=== PATIENT | male | born 1950 | race Caucasian/White ===

== ENCOUNTER → 2020-04-23 14:09 | Outpatient (BNVA) | payer MEDICARE, SELFPAY | PROVIDERS: Family Provider Family Medicine; Visit Provider Specialist | DX: M17.12 Unilateral primary osteoarthritis, left knee (principal); M25.562 Pain in left knee; M25.561 Pain in right knee | CPT/HCPCS: 73560; 73565 ==

== ENCOUNTER 2020-04-29 13:23 | Outpatient (CLI) | payer MEDICARE, SELFPAY ==
--- NOTE | 2020-04-29 13:45 | MR_ITS ---
WS: [id number] MRI LEFT KNEE HISTORY: M25.569 - Pain in unspecified knee COMPARISON: 04/23/2020 knee radiograph. Anterior cruciate ligament: Abnormal signal in the mid to distal ACL. There are a few fibers of the a nterior ACL that are still intact. There is a high-grade tear centrally. There is impingement of the ACL between the femoral condyles and the tibial plateau. Posterior cruciate ligament: Intact. Medial collateral ligament: Increased fluid signal and edema on both sides of the MCL but no tear. Posterior lateral corner structures: Intact. Medial menisci: Complex tear in the posterior horn. There is blunting and loss of the normal free edg e. There is linear horizontal signal abnormality through the entire horn. Anterior horn is normal. Lateral meniscus: Intact. Normal signal, size and shape. Extensor mechanism: Distal quadriceps tendon is normal. Patellar tendon is normal. There is extension of the infrapatellar fat pad inferiorly between the patellar tendon and the anterior tibia. No foreman lar tendon tear. Fluid and soft tissue: Very large suprapatellar joint effusion. There is extensive soft tissue edema surrounding the knee. Large lobulated Hanna's cyst extends over length of at least 7 cm. There is flu id around the distal Hanna's cyst suggesting some extravasation of the fluid content. Osseous and articular structures: Patellofemoral compartment: Mild narrowing of the lateral facet joint. Cartilage is intact. No fractu re or marrow edema. Medial compartment: Marked narrowing medial compartment. There is complete loss of cartilage and fill ing along the joint line. Partial extrusion of the meniscus. Marrow edema on both sides of the joint line. Small osteophytes from the margin. Lateral compartment: Mild narrowing of the lateral compartment. There is no marrow edema. There is ve ry mild fissuring of the cartilage. MR/MR knee LT wo con* [id number] IMPRESSION: 1. Severe internal derangement medial compartment. Complete loss of cartilage with extrusion of the meniscus, complex tear posterior horn and marrow edema. 2. Although not complete there is a high-grade tear in the mid ACL. 3. Large Hanna's cyst and large joint effusion. 4. Extensive soft tissue edema around the knee.
== END 2020-04-29 13:24 | disposition home or self-care (01) ==
PROVIDERS: Family Provider Family Medicine; Visit Provider Specialist
DX: M23.92 Unspecified internal derangement of left knee (principal); S83.512A Sprain of anterior cruciate ligament of left knee, initial encounter; M71.22 Synovial cyst of popliteal space [Baker], left knee; M25.462 Effusion, left knee; R60.0 Localized edema; X58.XXXA Exposure to other specified factors, initial encounter
CPT/HCPCS: 73721

== ENCOUNTER 2020-06-30 15:41 | Outpatient (CLI) | payer MEDICARE, SELFPAY ==
--- NOTE | 2020-06-30 15:50 | MR_ITS ---
WS: [id number] MRI THORACIC SPINE noncontrast. HISTORY: LEG WEAKNESS, BILATERAL COMPARISON: None available. TECHNIQUE: Multiplanar sequences are performed in sagittal and axial planes. This study is significantly limited by hardware. The exact vertebral body levels cannot be accurately identified. Hardware in the upper thoracic spine with significant distortion. Additional hardware at the thoracolumbar junction causing significant distortion. In the mid thoracic spine there are small disc protrusions and osteophytes but no compression upon the cord. There are several central and par acentral disc protrusions in the mid thoracic spine but again I'm not sure I can determine accurately at which levels these protrusions or atrophy. There is no cord contact. MR/MR thoracic spin wo con* [id number] IMPRESSION: 1. Significantly limited evaluation of the thoracic spine due to hardware in t he cervical thoracic spine and thoracolumbar junction. The exact mid thoracic v ertebral body levels cannot be accurately determined. 2. There are small central and paracentral disc protrusions in the mid thoraci c spine but no cord contact. No significant central stenosis in the visualized mid thoracic vertebral bodies.
--- NOTE | 2020-06-30 16:00 | MR_ITS ---
WS: [id number] MRI LUMBAR SPINE NONCONTRAST HISTORY: LEG WEAKNESS, BILATERAL COMPARISON: None available. TECHNIQUE: Sagittal and axial multisequence imaging is submitted. Patient has extensive fusion hardware throughout the lumbar spine extending into the thoracic spine. This study is essentially nondiagnostic due to the artifact and distortion from the hardware. 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 Extensive laminectomy defects throughout the lumbar spine. No significant central sten osis is identified throughout the lumbar spine but the foramina cannot be evaluated and small disc pr otrusions or herniations would be obscured also. MR/MR lumbar spine wo con* [id number] IMPRESSION: 1. Essentially nondiagnostic MRI lumbar spine due to the extensive hardware ca using artifact and distortion of the sequences. 2. There is no significant central stenosis identified from L1 to L5. Small di sc protrusions would not be visualized. Foramina cannot be evaluated. 3. Arachnoiditis.
== END 2020-06-30 15:42 | disposition home or self-care (01) ==
LOC: RADSHAW 15:41
PROVIDERS: PCP Family Medicine; Visit Provider Nurse Practitioner Acute Care
DX: R29.898 Other symptoms and signs involving the musculoskeletal system (principal); G03.9 Meningitis, unspecified
CPT/HCPCS: 72146; 72148

== ENCOUNTER 2021-08-05 09:34 | Outpatient (RCR) | payer MEDICARE, SELFPAY | END 2021-08-08 23:59 | disposition home or self-care (01) | LOC: SPT 09:34 | PROVIDERS: PCP Family Medicine; Referring Provider Orthopaedic Surgery; Visit Provider Orthopaedic Surgery | DX: M17.12 Unilateral primary osteoarthritis, left knee (principal) | CPT/HCPCS: 97161 ==

== ENCOUNTER 2021-08-09 06:00 | Outpatient (RCR) | payer MEDICARE, SELFPAY | END 2021-09-08 23:59 | disposition home or self-care (01) | LOC: SPT 06:00 | PROVIDERS: PCP Family Medicine; Referring Provider Orthopaedic Surgery; Visit Provider Orthopaedic Surgery | DX: M17.12 Unilateral primary osteoarthritis, left knee (principal) | CPT/HCPCS: 97032; 97110 ==

== ENCOUNTER 2021-09-09 06:00 | Outpatient (RCR) | payer MEDICARE, SELFPAY | END 2021-09-15 23:59 | disposition home or self-care (01) | LOC: SPT 06:00 | PROVIDERS: PCP Family Medicine; Referring Provider Orthopaedic Surgery; Visit Provider Orthopaedic Surgery | DX: Z47.1 Aftercare following joint replacement surgery (principal); Z96.652 Presence of left artificial knee joint; R26.89 Other abnormalities of gait and mobility; M25.562 Pain in left knee | CPT/HCPCS: 97110 ==

== ENCOUNTER 2021-10-29 10:29 | Outpatient (RCR) | payer MEDICARE, SELFPAY | END 2021-11-08 23:59 | disposition home or self-care (01) | LOC: SPT 10:29 | PROVIDERS: PCP Family Medicine; Referring Provider Orthopaedic Surgery; Visit Provider Orthopaedic Surgery | DX: Z96.651 Presence of right artificial knee joint (principal) | CPT/HCPCS: 97161 ==

== ENCOUNTER 2021-11-09 06:00 | Outpatient (RCR) | payer MEDICARE, SELFPAY | END 2021-12-09 23:59 | disposition home or self-care (01) | LOC: SPT 06:00 | PROVIDERS: PCP Family Medicine; Visit Provider Orthopaedic Surgery | DX: Z96.641 Presence of right artificial hip joint (principal) | CPT/HCPCS: 97110 ==

== ENCOUNTER 2021-12-10 06:00 | Outpatient (RCR) | payer MEDICARE, SELFPAY | END 2022-01-08 23:59 | disposition home or self-care (01) | LOC: SPT 06:00 | PROVIDERS: PCP Family Medicine; Visit Provider Orthopaedic Surgery | DX: Z96.651 Presence of right artificial knee joint (principal); M25.561 Pain in right knee; M25.661 Stiffness of right knee, not elsewhere classified | CPT/HCPCS: 97110 ==

== ENCOUNTER 2021-12-25 22:52 | Emergency (ER) | payer MEDICARE, SELFPAY ==
[2021-12-25 22:55] VITALS: BP 118/63; PULSE 88; RESP 22; O2SAT 85; BMI 25.8
--- NOTE | 2021-12-25 22:55 | ED_ITS ---
HPI - Altered Mental Status General: Chief Complaint: Altered Mental Status Stated Complaint: AMS Time Seen by Provider: 12/25/21 22:55 Limitations: other (Dysarthric speech) History of Present Illness: Mr Packer is a 71-year-old gentleman with complex past medical history who presents to the emergency department due to altered mental status. He underwent right total knee replacement approximately 3 months ago and had been slowly recovering. He was doing his exercises at home when he fell and hit his head on Tuesday (2 days ago). He did not have loss of consciousness and seemed to be able to get up. Subsequently he developed increased headache and generalized weakness. He was seen at outside hospital ER and apparently had a negative evaluation there but symptoms continue to worsen. He now has generalized weakness and dysarthric speech. Intensity symptoms moderate to severe. He has had a similar presentation with somewhat unclear et iology identified previously. History otherwise limited by dysarthric speech and provided by at bedside. Onset (ago): day(s) Timing confirmed by: spouse Severity: severe Consistency of symptoms: Getting Worse Context: trauma and other Associated symptoms: Reports no associated symptoms Review of Systems General: Reports: ROS unobtainable due to medical condition and ROS unobtainable due to mental status [facility] ED PFSH: Medical History (Updated 01/03/22 @ 00:01 by ) Chronic pain History of DVT (deep vein thrombosis) Hypertension Osteoarthritis of back Surgical History (Updated 12/26/21 @ 03:53 by Murray Torres MD) History of bilateral knee replacement Social History Smoking and tobacco status: never smoked Alcohol intake: current Alcohol intake frequency: 0-2 Drinks per Day Physical Exam Const: COMMON NORMALS: alert GENERAL APPEARANCE: cooperative and well developed HENMT: COMMON NORMALS: normocephalic and atraumatic HEAD & SCALP: normocephalic and atraumatic Eye: COMMON NORMALS: conjunctivae normal CONJUNCTIVA: Yes conjunctivae norm al SCLERA: sclerae normal Neck/C-Spine: COMMON NORMALS: supple GENERAL: Yes trachea midline Resp: COMMON NORMALS: normal respiratory effort and clear to auscultation bilaterally AUSCULTATION: clear to auscultation bilaterally OTHER: New oxygen requirement with supplemental oxygen in place Cardio: COMMON NORMALS: regular rate and regular rhythm RATE: regular rate RHYTHM: regular rhythm GI: COMMON NORMALS: Soft to palpation PALPATION: Yes Soft to palpation, Yes Tenderness to palpation present (GI), No Guarding due to palpation present (GI) and No Rigid due to palpation Extremity: GENERAL: Yes normal exam except as noted and No edema Neuro: COMMON NORMALS: moves all extremities SENSORIUM/ORIENTATION: Yes alert and Yes Orientation impaired OTHER: Dysarthric speech. Patient requires multiple repeated commands and mimicking for following commands though no gross focal neurologic deficits are otherwise appreciated. Course ED course: - Patient was seen and evaluated by me at bedside - Patient placed on cardiac monitors, IV access obtained - Initial evaluation notable for exam as above. Patient appears encephalopathic though does not appear to be primary neuro in etiology. - Labs and xrays personally interpreted by me. EKG shows sinus rhythm with right bundle branch block, no STEMI. - Labs notable for no leukocytosis, normocytic anemia. Metabolic panel without acute pathology to explain symptoms. CRP is elevated. Delta troponin negative. No UTI. No COVID. - Imaging notable for chest x-ray with no lobar consolidation or pneumothorax. CT head without acute traumatic injury identified. CT chest abdomen pelvis without evidence of acute pathology to explain mental status change/symptoms. - Upon serial reexamination after treatment the patient was perhaps mildly improved with regards to dysarthric speech - Based on patient history, evaluation, and testing as interpreted the most likely cause of the patient's condition is encephalopathy of unclear etiology - The results of ED evaluation were discussed with the patient including plan for admission due to requirement for level of care not available if discharged to prevent significant worsening/deterioration. - Admitting service was contacted and Dr Torres with the hospitalist service came to evaluate the patient. - Admitting service request CT of patient's replace need to rule out fluid collection/infectious etiology as a source of patient's symptoms prior to admission at our facility. - CT with inflammatory changes concerning for possible abscess formation. Given inflammatory marker elevation without other significant source of infection identified including negative CT scan of the head chest abdomen pelvis patient requires transfer. Patient was accepted by Dr. Odom to [facility]. Note: Click bubbles or prepopulated brito in note writing are used for assistance with data collection and billing and are inherently more limited than narrative and other text portions of this note. Please use narrative for additional clinical history and defer to narrative/free test for any case of contradictory information. If information appears in only free text or click bubble it should be considered present or absent as reported. Please contact note technical proposal writer for clarifications of clinical information or contradictory information. MDM is a brief summary, contradictory or erroneous seeming information should be clarified and full note should be reviewed. Vital Signs: Vital signs: Vital Signs Temperature 100.5 F H 12/26/21 01:34 Pulse Rate 72 12/26/21 09:00 Respiratory Rate 15 12/26/21 09:33 Blood Pressure 96/52 12/26/21 09:00 Pulse Oximetry 93 12/26/21 09:33 Oxygen Delivery Me thod 12/26/21 08:30 MDM - Altered Mental Status Medical Decision Making 71-year-old gentleman presenting with unspecified altered mental status. No clear etiology identified on ED evaluation. Evaluated by admitting service and additional work-up ordered. Upon CT knee evaluation concern for source of infection. Patient has developed fever and inflammatory markers are elevated. Procedure was done through the [facility] system with Dr. Odom. Luckily Dr. Odom was on-call and accepted the patient as a transfer. Medical Records I reviewed the patient's medical records. Lab Data I reviewed the patient's lab results. : 12/25/21 23:04 12/25/21 23:04 Radiology Impressions Chest X-Ray 12/25/21 23:07 IMPRESSION: No acute infiltrate. Chest/Abdomen/Pelvis CT 12/25/21 23:28 IMPRESSION: 1. 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 2. Strandy opacities are seen adjacent to the major fissures bilaterally and within the lower hemithoraces likely representing atelectasis versus pleural or parenchymal scarring. IMPRESSION: 1. There are no acute abdominal findings. 2. Benign right renal cyst measuring 2 cm in diameter. No further workup needed. 3. Benign small pelvocaliceal cysts within the left kidney. No further workup needed. 4. Mild diverticulosis of the descending and sigmoid colon 5. Patulous gallbladder without evidence of gallstones. 6. Extensive postoperative changes seen within the thoracolumbar spine. COMMENTS: Consistent with the [employer]'s Incidental Findings Committee white paper (J Am Rea Radiol 2018): Any incidental renal lesion less than 1 cm or classified as too small to characterize, or any incidental cystic renal lesion characterized as simple-appearing, is likely benign. No follow-up imaging is recommended for these lesions per consensus recommendations based on imaging criteria. Head CT 12/25/21 23:28 IMPRESSION: There are no acute intracranial findings. Stable head CT compared with 01/06/2018. Knee CT 12/26/21 03:35 IMPRESSION: 1. The right knee prosthesis creates beam hardening artifact decreasing resolution. 2. There is abnormal low-attenuation with peripheral enhancement seen in the suprapatellar bursa worrisome for inflammatory changes and possible suprapatellar abscess formation. Laboratory Results WBC 9.3 10^3/uL (4.0-10.0) 12/25/21 23:04 RBC 3.92 10^6/uL (4.1-5.3) L 12/25/21 23:04 Hgb 11.1 g/dL (11.7-16.6) L 12/25/21 23:04 Hct 35.5 % (42.0-52.0) L 12/25/21 23:04 MCV 90.6 fl (80-94) 12/25/21 23:04 MCH 28.3 pg (28.0-34.0) 12/25/21 23:04 MCHC 31.3 g/dL (30.0-36.0) 12/25/21 23:04 RDW 16.0 % (12.1-15.1) H 12/25/21 23:04 Plt Count 323 10^3/cmm (130-400) 12/25/21 23:04 MPV 9.5 fL (7.4-10.4) 12/25/21 23:04 Neut % (Auto) 76.8 % 12/25/21 23:04 Lymph % (Auto) 10.0 % 12/25/21 23:04 [place] % (Auto) 9.9 % 12/25/21 23:04 Eos % (Auto) 2.5 % 12/25/21 23:04 Baso % (Auto) 0.5 % 12/25/21 23:04 Neut # (Auto) 7.14 10^3/uL (1.8-7.7) 12/25/21 23:04 Lymph # (Auto) 0.9 10^3/uL (0.8-4.8) 12/25/21 23:04 [place] # (Auto) 0.9 10^3/uL (0.2-0.9) 12/25/21 23:04 Eos # (Auto) 0.2 10^3/uL (0.0-0.8) 12/25/21 23:04 Baso # (Auto) 0.1 10^3/uL (0.0-0.1) 12/25/21 23:04 Nucleated RBC % (auto) 0 % 12/25/21 23:04 Nucleated RBCs # 0.0 /100WBC 12/25/21 23:04 ESR 68 mm/hr (0-10) H 12/26/21 03:39 Sodium 137 mmol/L (136-145) 12/25/21 23:04 Potassium 4.4 mmol/L (3.5-5.1) 12/25/21 23:04 Chloride 98 mmol/L (98-107) 12/25/21 23:04 Carbon Dioxide 25 mmol/L (22-29) 12/25/21 23:04 Anion Gap 18.4 (5-19) 12/25/21 23:04 BUN 19 mg/dL (8-23) 12/25/21 23:04 Creatinine 1.2 mg/dL (0.7-1.2) 12/25/21 23:04 GFR Calculation 60.0 mL/min (90-130) L 12/25/21 23:04 Glucose 101 mg/dL (65-115) 12/25/21 23:04 POC Glucose 113 mg/dL (70-110) H 12/25/21 23:49 Calculated Osmolality 286 mOsm/kg (285-295) 12/25/21 23:04 Lactate 0.7 mmol/L (0.5-2.2) 12/25/21 23:26 Calcium 8.9 mg/dL (8.5-10.5) 12/25/21 23:04 Magnesium 2.2 mg/dL (1.7-2.3) 12/25/21 23:04 Total Bilirubin 0.7 mg/dL (0.15-1.2) 12/25/21 23:04 AST 9 U/L (0-40) 12/25/21 23:04 ALT 6 U/L (0-41) 12/25/21 23:04 Alkaline Phosphatase 89 U/L (40-130) 12/25/21 23:04 Troponin T Baseline 57 ng/L (0-15) H 12/25/21 23:04 Troponin T 120 Minute 48.51 ng/L (0-15) H 12/26/21 01:31 Delta Troponin T -8.49 ABS# (0-10) L 12/26/21 01:31 Troponin T Hi Sens 6Hr 53.89 ng/L (0-15) H 12/26/21 06:05 Troponin T Hi Sens 6Hr Delta -3.11 ng/L (0-12) L 12/26/21 06:05 C-Reactive Protein 220.1 mg/L (0.0-4.9) H 12/25/21 23:04 NT-Pro-B Natriuret Pep 171 pg/mL (0-125) H 12/25/21 23:04 Total Protein 5.7 g/dL (6.6-8.7) L 12/25/21 23:04 Albumin 2.9 g/dL (3.5-5.2) L 12/25/21 23:04 Globulin 2.8 g/dL (1.3-4.6) 12/25/21 23:04 Procalcitonin 0.40 ng/mL (0-0.5) 12/25/21 23:04 TSH 1.89 uIU/mL (0.27-4.20) 12/25/21 23:04 Urine Color Yellow (Yellow) 12/25/21 23:52 Urine Appearance Clear (CLEAR) 12/25/21 23:52 Urine pH 6 (5-7) 12/25/21 23:52 Ur Specific [place] 1.015 (1.005-1.030) 12/25/21 23:52 Urine Protein Neg (Negative) 12/25/21 23:52 Urine Glucose (UA) Norm (Normal) 12/25/21 23:52 Urine Ketones Negative (Negative) 12/25/21 23:52 Urine Blood Neg (Negative) 12/25/21 23:52 Urine Nitrate Negative (Negative) 12/25/21 23:52 Urine Bilirubin Neg (Negative) 12/25/21 23:52 Urine Urobilinogen Neg mg/dL (Negative) 12/25/21 23:52 Ur Leukocyte Esterase Negative (Negative) 12/25/21 23:52 Coronavirus 229E (PCR) Not detected (NOT DETECT) 12/25/21 23:51 SARS-CoV-2 (PCR) Not detected (NOT DETECT) 12/25/21 23:51 Discharge Plan Discharge Patient Disposition: Xfer Short-Term Hosp Clinical Impression: Altered mental status Condition: Stable Referrals: Geraldine Anderson DO [Primary Care Provider] - Coding Level of Care Code ED Transmission Technician for Chg Fwd Exam Comprehensive
--- NOTE | 2021-12-25 23:07 | XRR_ITS ---
PROCEDURE INFORMATION: Exam: XR Chest Exam date and time: 12/25/2021 11:10 PM Age: 71 years old Clinical indication: Prior surgery; Surgery type: Cervical fusion. Thoracic fusion; Patient HX: AMS with fever TECHNIQUE: Imaging protocol: Radiologic exam of the chest. Views: 1 view. COMPARISON: CR XR chest 1V [id number] 01/06/2018 5:02 PM FINDINGS: Lungs: Visualized portions of the lungs are clear. Pleural spaces: Unremarkable. No pleural effusion. No pneumothorax. Heart/Mediastinum: Heart is within normal limits of size. Bones/joints: Findings of posterior spinal fusion are seen in the cervicothoracic region and lower thoracic spine not changed from 01/06/2018. XR/XR chest 1V portable [id number] IMPRESSION: No acute infiltrate.
--- NOTE | 2021-12-25 23:07 | ECG_ITS ---
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 Measurements Intervals [place] Rate: 91 P: 43 ME: 132 QRS: 152 QRSD: 170 T: 30 QT: 396 QTc: 489 Interpretive Statements SINUS RHYTHM Right axis deviation RIGHT BUNDLE BRANCH BLOCK [120+ ms QRS DURATION, UPRIGHT V1, 40+ ms S IN I/aVL/V4/V5/V6] LEFT POSTERIOR FASCICULAR BLOCK [QRS AXIS > 109, INFERIOR Q] Compared to ECG 01/06/2018 20:26:01 Left posterior fascicular block now present Electronically Signed On 12-26-2021 9:14:59 CDT by Mychal Burton M.D. [id number] f
[2021-12-25 23:15] VITALS: TEMP 37.2
[2021-12-25 23:22] LABS: Basophils # 0.1 10^3/uL (0.0-0.1); Basophils % 0.5 %; Eosinophils # 0.2 10^3/uL (0.0-0.8); Eosinophils % 2.5 %; Hematocrit 35.5 % (42.0-52.0); Hemoglobin 11.1 g/dL (11.7-16.6); Lymphocytes # 0.9 10^3/uL (0.8-4.8); Mean Corpuscular HGB Conc 31.3 g/dL (30.0-36.0); Mean Corpuscular Hemoglobin 28.3 pg (28.0-34.0); Mean Corpuscular Volume 90.6 fl (80-94); Mean Platelet Volume 9.5 fL (7.4-10.4); Monocytes # 0.9 10^3/uL (0.2-0.9); Monocytes % 9.9 %; Neutrophils # 7.14 10^3/uL (1.8-7.7); Neutrophils % 76.8 %; Nucleated Red Blood Cells % 0 %; Platelet Count 323 10^3/cmm (130-400); Red Blood Count 3.92 10^6/uL (4.1-5.3); White Blood Count 9.3 10^3/uL (4.0-10.0)
--- NOTE | 2021-12-25 23:28 | CTR_ITS ---
PROCEDURE INFORMATION: Exam: CT Head Without Contrast Exam date and time: 12/26/2021 12:14 AM Age: 71 years old Clinical indication: Injury or trauma; Blunt trauma (contusions or hematomas); Altered mental status/memory loss and fever; Prior surgery; Surgery type: Cervical fusion; Patient HX: AMS with fever. Fall four days ago. ; Additional info: Fall, AMS TECHNIQUE: Imaging protocol: Computed tomography of the head without contrast. Radiation optimization: All CT scans at this facility use at least one of these dose optimization techniques: automated exposure control; mA and/or kV adjustment per patient size (includes targeted exams where dose is matched to clinical indication); or iterative reconstruction. COMPARISON: CT head wo con* [id number] 01/06/2018 7:35 PM RADIATION DOSE METRICS: Total DLP (mGy-cm): 1081.98 FINDINGS: Brain: There is mild diffuse cerebral atrophy. Patchy areas of hypoattenuation are seen in the deep white matter of the cerebral hemispheres compatible mild deep white matter microvascular disease. Cerebral ventricles: No ventriculomegaly. Paranasal sinuses: There is mucosal thickening and fluid seen within the ethmoidal sinuses bilaterally within the right maxillary sinus. Mastoid air cells: Visualized mastoid air cells are well aerated. Bones/joints: Unremarkable. No acute fracture. Soft tissues: Unremarkable. CT/CT head wo con* [id number] IMPRESSION: There are no acute intracranial findings. Stable head CT compared with 01/06/2018.
--- NOTE | 2021-12-25 23:28 | CTR_ITS ---
PROCEDURE INFORMATION: Exam: CTA Chest With Contrast Exam date and time: 12/26/2021 12:20 AM Age: 71 years old Clinical indication: Injury or trauma; Other: N/a; Generalized; Blunt trauma (contusions or hematomas); Prior surgery; Surgery type: Cervical fusion. Thoracic fusion. Bilat thr. Patient HX: AMS with fever. Elevated troponin with hypoxia. Fall four days ago. ; Additional info: AMS, new o2 req, abd pain TECHNIQUE: Imaging protocol: Computed tomographic angiography of the chest with contrast. 3D rendering (Not supervised by radiologist): MIP and/or 3D reconstructed images were created by the technologist. Radiation optimization: All CT scans at this facility use at least one of these dose optimization techniques: automated exposure control; mA and/or kV adjustment per patient size (includes targeted exams where dose is matched to clinical indication); or iterative reconstruction. Contrast material: OMNI 350; Contrast volume: 95 ml; Contrast route: INTRAVENOUS (IV); COMPARISON: CR (CHEST, ) 12/25/2021 11:10 PM RADIATION DOSE METRICS: Total DLP (mGy-cm): 1172.35 FINDINGS: Pulmonary arteries: Normal. No pulmonary emboli. Aorta: Unremarkable. No aortic aneurysm. No aortic dissection. Lungs: There is a background of emphysema and bronchiectasis. There are strandy opacity seen adjacent to the major fissures bilaterally and within the lower hemithoraces that likely represents atelectasis versus pleural or parenchymal scarring. Pleural spaces: See Lungs finding. Heart: Unremarkable. No cardiomegaly. No pericardial effusion. Lymph nodes: Unremarkable. No enlarged lymph nodes. Bones/joints: Pedicle screws and posterior rods extend from cervical spine through T3. Pedicle screws and posterior rods are seen extending T11 caudally. Prominent bridging osteophytes are seen within the mid and lower thoracic spine compatible with degenerative disc disease. Soft tissues: Unremarkable. PROCEDURE INFORMATION: Exam: CT Abdomen And Pelvis With Contrast Exam date and time: 12/26/2021 12:20 AM Age: 71 years old Clinical indication: Injury or trauma; Other: N/a; Generalized; Blunt trauma (contusions or hematomas); Prior surgery; Surgery type: Cervical fusion. Thoracic fusion. Bilat thr. Patient HX: AMS with fever. Elevated troponin with hypoxia. Fall four days ago. ; Additional info: AMS, new o2 req, abd pain TECHNIQUE: Imaging protocol: Computed tomography of the abdomen and pelvis with contrast. Radiation optimization: All CT scans at this facility use at least one of these dose optimization techniques: automated exposure control; mA and/or kV adjustment per patient size (includes targeted exams where dose is matched to clinical indication); or iterative reconstruction. Contrast material: OMNI 350; Contrast volume: 95 ml; Contrast route: INTRAVENOUS (IV); COMPARISON: MR lumbar spine wo con* [id number] 06/30/2020 4:19 PM RADIATION DOSE METRICS: Total DLP (mGy-cm): 1172.35 FINDINGS: Liver: Normal. No mass. Gallbladder and bile ducts: The gallbladder appears patulous without evidence gallstones. Pancreas: Normal. No ductal dilation. Spleen: Normal. No splenomegaly. Adrenal glands: Normal. No mass. Kidneys and ureters: There is a hypoattenuation cystic mass seen aspect right kidney measuring approximately 2 cm in diameter. There is a nonobstructing calculus seen in the left kidney posteriorly measuring 3.8 mm. There are small pelvocaliceal cysts present within the left kidney. Stomach and bowel: Diverticula are seen on descending and sigmoid colon. There are no inflammatory changes seen to suggest diverticulitis. Appendix: The appendix is visualized and is normal in configuration. Intraperitoneal space: Unremarkable. No free air. No significant fluid collection. Vasculature: Unremarkable. No abdominal aortic aneurysm. Lymph nodes: Unremarkable. No enlarged lymph nodes. Urinary bladder: Unremarkable as visualized. Reproductive: Unremarkable as visualized. Bones/joints: Status post bilateral bipolar hip replacements. Pedicle screws and posterior rods extend from T11 through S1. There is posterior osseous fusion extending from T11 through S1. Soft tissues: Unremarkable. CT/CT angio chest w abd pel w con IMPRESSION: 1. 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 2. Strandy opacities are seen adjacent to the major fissures bilaterally and within the lower hemithoraces likely representing atelectasis versus pleural or parenchymal scarring. IMPRESSION: 1. There are no acute abdominal findings. 2. Benign right renal cyst measuring 2 cm in diameter. No further workup needed. 3. Benign small pelvocaliceal cysts within the left kidney. No further workup needed. 4. Mild diverticulosis of the descending and sigmoid colon 5. Patulous gallbladder without evidence of gallstones. 6. Extensive postoperative changes seen within the thoracolumbar spine. COMMENTS: Consistent with the [employer]'s Incidental Findings Committee white paper (J Am Rea Radiol 2018): Any incidental renal lesion less than 1 cm or classified as too small to characterize, or any incidental cystic renal lesion characterized as simple-appearing, is likely benign. No follow-up imaging is recommended for these lesions per consensus recommendations based on imaging criteria.
[2021-12-25 23:44] LABS: Troponin(5th) Baseline 57 ng/L (0-15)
[2021-12-25 23:50] LABS: Lactate (Lactic Acid level) 0.7 mmol/L (0.5-2.2)
[2021-12-25 23:54] LABS: NT Pro B Type Natriuretic Pept 171 pg/mL (0-125); Thyroid Stimulating Hormone 1.89 uIU/mL (0.27-4.20)
[2021-12-26] VITALS (8 sets, daily range): BP systolic 93–108; BP diastolic 52–73; PULSE 70–79; RESP 15–18; TEMP 38.1; O2SAT 93–97
[2021-12-26 00:05] LABS: Alanine Aminotransferase 6 U/L (0-41); Albumin Level 2.9 g/dL (3.5-5.2); Alkaline Phosphatase 89 U/L (40-130); Anion Gap 18.4 (5-19); Aspartate Amino Transferase 9 U/L (0-40); Blood Urea Nitrogen 19 mg/dL (8-23); C Reactive Protein 220.1 mg/L (0.0-4.9); Calcium 8.9 mg/dL (8.5-10.5); Carbon Dioxide 25 mmol/L (22-29); Chloride 98 mmol/L (98-107); Globulin 2.8 g/dL (1.3-4.6); Glucose 101 mg/dL (65-115); Magnesium 2.2 mg/dL (1.7-2.3); Osmolality Calculated 286 mOsm/kg (285-295); Potassium 4.4 mmol/L (3.5-5.1); Sodium 137 mmol/L (136-145); Total Bilirubin 0.7 mg/dL (0.15-1.2); Total Protein 5.7 g/dL (6.6-8.7)
[2021-12-26 00:12] LABS: Glucose Point of Care 113 mg/dL (70-110)
[2021-12-26 00:23] LABS: Add Urine Microscopic? NO; Charge for UA Resulting for Rev
[2021-12-26 00:38] LABS: Bilirubin Urine Neg (Negative); Blood Urine Neg (Negative); Glucose Urine UA Norm (Normal); Ketones Urine Negative (Negative); Leukocyte Esterase Urine Negative (Negative); Nitrate Urine Negative (Negative); Protein Urine Neg (Negative); Specific Gravity, Urine 1.015 (1.005-1.030); Urine Appearance Clear (CLEAR); Urine Color Yellow (Yellow); Urobilinogen Urine Neg (Negative); pH Urine 6 (5-7)
[2021-12-26] MEDS: iohexol 350 mg/mL 100 mL Btl IV ×2 (00:44→05:05)
--- NOTE | 2021-12-26 01:12 | ECG_ITS ---
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 Measurements Intervals [place] Rate: 85 P: 40 PA: 171 QRS: 130 QRSD: 170 T: 33 QT: 421 QTc: 502 Interpretive Statements SINUS RHYTHM RIGHT BUNDLE BRANCH BLOCK [120+ ms QRS DURATION, UPRIGHT V1, 40+ ms S IN I/aVL/V4/V5/V6] LEFT POSTERIOR FASCICULAR BLOCK [QRS AXIS > 109, INFERIOR Q] Compared to ECG 12/25/2021 22:58:48 No significant changes Electronically Signed On 12-26-2021 9:44:23 CDT by Mychal Burton M.D. [id number]
[2021-12-26 02:01] LABS: Troponin 5 2HR 48.51 ng/L (0-15); Troponin 5 2HR Delta -8.49 ABS# (0-10)
[2021-12-26 02:26] LABS: Adenovirus Not Detected (NOT DETECT); Chlamydia Pneumoniae Not Detected (NOT DETECT); Coronavirus 229E,HKU1,NL63,OC4 Not Detected (NOT DETECT); Human Metapneumovirus Not Detected (NOT DETECT); Human Rhinovirus/Enterovirus Not Detected (NOT DETECT); Influenza A Not Detected (NOT DETECT); Influenza A H1 Not Detected (NOT DETECT); Influenza A H1-2009 Not Detected (NOT DETECT); Influenza A H3 Not Detected (NOT DETECT); Influenza B Not Detected (NOT DETECT); Mycoplasma Pneumoniae Not Detected (NOT DETECT); Parainfluenza Virus Type 1 Not Detected (NOT DETECT); Parainfluenza Virus Type 2 Not Detected (NOT DETECT); Parainfluenza Virus Type 3 Not Detected (NOT DETECT); Parainfluenza Virus Type 4 Not Detected (NOT DETECT); Respiratory Syncytial Virus A Not Detected (NOT DETECT); Respiratory Syncytial Virus B Not Detected (NOT DETECT); SARS-COV-2 Not Detected (NOT DETECT)
[2021-12-26] MEDS: ketorolac 30 mg/mL INJ 15 MG IVP (03:06)
--- NOTE | 2021-12-26 03:35 | CTR_ITS ---
PROCEDURE INFORMATION: Exam: CT Right Lower Extremity With Contrast, Knee Exam date and time: 12/26/2021 4:50 AM Age: 71 years old Clinical indication: Swelling, leg or foot; Right; Prior surgery; Surgery date: 1-6 months; Surgery type: RT total knee; Patient HX: Swelling and pain to RT knee. Total knee performed in October of 2021. ; Additional info: Right knee tka, AMS, nknee swollen, spetic joint? TECHNIQUE: Imaging protocol: CT of the Right lower extremity with intravenous contrast was performed. Exam focused on the knee. Radiation optimization: All CT scans at this facility use at least one of these dose optimization techniques: automated exposure control; mA and/or kV adjustment per patient size (includes targeted exams where dose is matched to clinical indication); or iterative reconstruction. Contrast material: OMNI 350; Contrast volume: 80 ml; Contrast route: INTRAVENOUS (IV); COMPARISON: No relevant prior studies available. RADIATION DOSE METRICS: Total DLP (mGy-cm): 274.31 FINDINGS: Tubes, catheters and devices: Beam hardening artifact generated by the knee prosthesis decreases resolution. Bones/joints: Status post total right knee replacement. Soft tissues: There is fluid attenuation with surrounding peripheral enhancement seen in the suprapatellar region deep to quadriceps musculature worrisome inflammatory changes within the suprapatellar bursa bursa appears swollen measuring approximately 7.5 cm transverse dimension by approximately [address]/CT knee RT w con [id number] IMPRESSION: 1. The right knee prosthesis creates beam hardening artifact decreasing resolution. 2. There is abnormal low-attenuation with peripheral enhancement seen in the suprapatellar bursa worrisome for inflammatory changes and possible suprapatellar abscess formation.
--- NOTE | 2021-12-26 03:48 | P.HP_ITS ---
Providers/Chief Complaint Admitting Physician: Murray Torres MD Primary Care Provider: Geraldine Anderson DO Chief Complaint: AMS History of Present Illness Neto Packer is a 71 year old male with a past medical history of hyperlipidemia, history of recent right knee replacement, history of altered mental status, who presents to [facility] for altered mental status. According to patient's at bedside, patient back in October he had [facility], had his right knee replaced, since then she tells me, since he came out of anesthesia after the surgery has been totally different. He had significant episodes of altered mental status during his hospitalization, he had an extensive evaluation, his tells me, they were also worried about the right knee joint space infection, had arthrocentesis without any significant findings, eventually his mentation improved and he was in her words sent off to physical therapy he was doing well in physical therapy, eventually discharged home. Currently he is at home with his , he is alert and oriented x3, he ambulates with a walker, he has been doing well, no recent sick contacts, recent travel he did have a DVT in his right leg requiring placement on Xarelto. He is on chronic pain medications, but has been using all his medication as prescribed. She tells me that for the last 24 hours, he has had generalized weakness, inability to walk, due to weakness, increased confusion, she tells me that he is told he now is different than. She tells me that similar to what had happened at [facility] in [place] after surgery. She tells me that he did have a fall on the 14, on the right side, no head trauma, no loss of consciousness. Currently patient is alert to person, not to place, not to time, he can follow commands, responses are very delayed, I cannot really get any clear answers from him or a detailed history from him. Review of Systems General: Reports: ROS unobtainable due to mental status Medications/Allergies Home Medications Medication Instructions Recorded Confirmed Last Taken Type atorvastatin 40 mg tablet 40 mg PO DAILY 04/23/20 01/15/21 Unknown History celecoxib 200 mg capsule (Celebrex) 200 mg PO DAILY 04/23/20 01/15/21 Unknown History gabapentin 600 mg tablet 600 mg PO TID 04/23/20 01/15/21 Unknown History morphine 60 mg capsule,extended 60 mg PO DAILY 04/23/20 01/15/21 Unknown History release 24 hr multiphase oxycodone 20 mg tablet 20 mg PO Q8H PRN 04/23/20 01/15/21 Unknown History Allergies Allergy/AdvReac Type Severity Reaction Status Date / Time No Known Allergies Allergy Verified 01/15/21 08:25 PFSH Acute PFSH: Medical History (Updated 12/26/21 @ 03:55 by Murray Torres MD) Chronic pain History of DVT (deep vein thrombosis) Hypertension Osteoarthritis of back Surgical History (Updated 12/26/21 @ 03:53 by Murray Torres MD) History of bilateral knee replacement Social History Smoking and tobacco status: never smoked Alcohol intake: current Alcohol intake frequency: 0-2 Drinks per Day Vitals/I&O/Wt Last Vital Signs Temp 100.5 F H 12/26/21 01:34 Pulse 78 12/26/21 03:30 Resp 16 12/26/21 03:30 BP 98/53 12/26/21 03:30 Pulse Ox 97 12/26/21 01:34 O2 Del Method 12/25/21 22:55 Weight last 48 hrs Weight 79.379 kg Physical Exam Const: COMMON NORMALS: no acute distress EXAM LIMITATIONS: altered mental status ORIENTATION/CONSCIOUSNESS: Yes awake, Yes oriented to person and Yes confused; not oriented to place and not oriented to time HENMT: COMMON NORMALS: normocephalic HEAD & SCALP: normocephalic Neck/C-Spine: COMMON NORMALS: no JVD Resp: COMMON NORMALS: normal respiratory effort, No retractions, No use of accessory muscles and clear to auscultation bilaterally AUSCULTATION: clear to auscultation bilaterally Cardio: COMMON NORMALS: no JVD, regular rate, regular rhythm, S1 normal heart sound present and S2 normal heart sound present RATE: regular rate RHYTHM: regular rhythm HEART SOUNDS: S1 normal heart sound present and S2 normal heart sound present GI: COMMON NORMALS: Normal to inspection, nondistended, normoactive bowel sounds present, Soft to palpation, non-tender, No hepatosplenomegaly present, no masses and no bruits PALPATION: Yes Soft to palpation and Yes No hepatosp lenomegaly present Extremity: COMMON NORMALS: no calf tenderness and no pedal edema NARRATIVE EXTREMITY EXAM: Right knee knee, erythematous, tender, swollen Neuro: OTHER: Difficult for him to follow neurologic testing Psych: COMMON NORMALS: mental status grossly normal Data : 12/25/21 23:04 12/25/21 23:04 Micro: Microbiology 12/25/21 23:47 Blood Culture - Preliminary Blood SPECIMEN COLLECTED 12/25/21 23:50 Blood Culture - Preliminary Blood SPECIMEN COLLECTED A&P Assessment and plan (1) Altered mental status: Status: Acute Plan Altered mental status -Etiology unclear -Hemoglobin 11.1 -No significant electrolyte abnormalities -UA negative for UTI -Chest x-ray negative for focal pneumonia -CT head no acute findings -Is difficult for him to follow neurologic testing, but he does have spontaneous movement of bilateral upper extremity, right lower extremity, he does not move the left lower extremity particularly at the knee due to pain -No neck stiffness, pupils equal round reactive to light Kernig's and Brudzinski's sign negative -Pride CT chest abdomen pelvis no acute findings -On examination, the only significant finding is right knee swelling, tenderness, erythema, pain with range of motion -CRP 220, Pro-Mustapha 0.4, ESR pending -Baseline troponin 57, 120-minute 48.5, EKG normal sinus rhythm Plan -Given that there is concerns for right knee total arthroplasty, septic joint, will need to rule out septic joint, will do CT of right knee with contrast -Follow ESR, CRP is elevated, he has a low-grade temperature 1.5, if indeed he has evidence of right knee infection he will likely need transfer to [facility] -However if the right knee does not show any significant signs of infection -Other possibilities include meningitis and encephalitis -We will have to talk to interventional radiology about doing a lumbar puncture -Will order carotid artery ultrasound, cardiac echo, MRI of the brain -In addition certainly we can consider doing EEG for seizure evaluation however I cannot see any focal seizure like symptoms -Neurochecks, aspiration precautions, and stroke scale, seizure precautions -Other possibility could be polypharmacy, have held his opiate medications, gabapentin, monitor mentation -Patient is DNR/DNI -He is on Xarelto for DVT prophylaxis, his home dose of Xarelto is listed at 5 mg which seems incorrect, will have to discuss with his pharmacy in the morning, I have increased it to 20 mg once daily, his tells me that he had a DVT in his right lower extremity Attestations Medical Necessity Statement*: Patient requires hospitalization, inpatient, greater than 2 midnights Coding Level of Care Code 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
[2021-12-26 04:00] LABS: Erythrocyte Sedimentation Rate 68 mm/hr (0-10)
--- NOTE | 2021-12-26 05:07 | ECG_ITS ---
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 Measurements Intervals [place] Rate: 68 P: 53 MD: 180 QRS: 114 QRSD: 178 T: 31 QT: 469 QTc: 500 Interpretive Statements SINUS RHYTHM RIGHT BUNDLE BRANCH BLOCK [120+ ms QRS DURATION, UPRIGHT V1, 40+ ms S IN I/aVL/V4/V5/V6] LEFT POSTERIOR FASCICULAR BLOCK [QRS AXIS > 109, INFERIOR Q] Compared to ECG 12/26/2021 01:12:31 No significant changes Electronically Signed On 12-26-2021 9:16:09 CDT by Mychal Burton M.D. [id number]
--- NOTE | 2021-12-26 05:48 | PC.PHAR ---
Vancomycin is dosed at 1500mg IVPB every 24 hours to produce a predicted trough level of 11.22 (population based pharmacokinetic analysis). A trough level has been ordered from the lab to be obtained before the fourth dose to confirm and adjust if needed. The Zosyn is dosed at 3.375gm IVPB every 8 hours on the basis of the creatinine clearance of 60.95.
[2021-12-26] MEDS: vancomycin 1,500 MG/300 ML PIGGYBACK 150 MG IV (06:09)
[2021-12-26 06:29] LABS: Troponin 5 6HR 53.89 ng/L (0-15)
[2021-12-26 07:21] LABS: Troponin 5 6HR Delta -3.11 ng/L (0-12)
[2021-12-26] MEDS: piperacillin-tazobactam 3.375 GM in sodium chloride 0.9% (plus) 50 ML IV (07:49)
--- NOTE | 2021-12-26 08:30 | PC.NURSE ---
update on transfer this nurse called receiving facility & was updated that there is still no bed assignment for this patient.
[2021-12-26] MEDS: oxyCODONE 20 mg ER (12 HR) Tablet PO (09:33)
== END 2021-12-26 09:35 | disposition short-term general hospital (02) ==
LOC: ER 12-26 02:46 → MEDSURG 12-26 06:01
PROVIDERS: Emergency Provider Emergency Medicine; PCP Family Medicine
DX: R41.82 Altered mental status, unspecified (principal); I10 Essential (primary) hypertension; Z86.718 Personal history of other venous thrombosis and embolism
CPT/HCPCS: 36415; 36416; 70450; 71045; 71275; 73701; 74177; 80053; 81003; 82962; 83605; 83735; 83880; 84145; 84443; 84484; 85025; 85651; 86140; 87040; 87635; 93005; 96365; 96366; 96367; 96375; 99285; J1885; J2543; J3370; Q9967

== ENCOUNTER 2022-02-03 06:00 | Outpatient (RCR) | payer MEDICARE, SELFPAY | END 2022-02-08 23:59 | disposition home or self-care (01) | LOC: SPT 06:00 | PROVIDERS: PCP Family Medicine; Visit Provider Family Medicine | DX: R27.0 Ataxia, unspecified (principal); Z96.653 Presence of artificial knee joint, bilateral; M25.512 Pain in left shoulder; G89.29 Other chronic pain | CPT/HCPCS: 97161 ==

== ENCOUNTER 2022-02-09 06:00 | Outpatient (RCR) | payer MEDICARE, SELFPAY | END 2022-03-10 23:59 | disposition home or self-care (01) | LOC: SPT 06:00 | PROVIDERS: PCP Family Medicine; Visit Provider Family Medicine | DX: R27.0 Ataxia, unspecified (principal); M25.512 Pain in left shoulder; G89.29 Other chronic pain; Z96.653 Presence of artificial knee joint, bilateral | CPT/HCPCS: 97110 ==

== ENCOUNTER 2022-03-11 06:00 | Outpatient (RCR) | payer MEDICARE, SELFPAY | END 2022-04-10 23:59 | disposition home or self-care (01) | LOC: SPT 06:00 | PROVIDERS: PCP Family Medicine; Visit Provider Family Medicine | DX: R27.0 Ataxia, unspecified (principal); Z96.653 Presence of artificial knee joint, bilateral; M25.512 Pain in left shoulder; G89.29 Other chronic pain | CPT/HCPCS: 97110 ==

== ENCOUNTER → 2022-03-22 10:43 | Outpatient (BNVA) | payer MEDICARE, SELFPAY | PROVIDERS: PCP Family Medicine; Visit Provider Anesthesiology Pain Medicine | DX: M54.50 Low back pain, unspecified (principal); M79.604 Pain in right leg; M79.605 Pain in left leg | CPT/HCPCS: 99205 ==

== ENCOUNTER 2022-04-11 06:00 | Outpatient (RCR) | payer MEDICARE, SELFPAY | END 2022-05-11 23:59 | disposition home or self-care (01) | LOC: SPT 06:00 | PROVIDERS: PCP Family Medicine; Visit Provider Family Medicine | DX: R27.0 Ataxia, unspecified (principal); Z96.653 Presence of artificial knee joint, bilateral; M25.512 Pain in left shoulder; G89.29 Other chronic pain | CPT/HCPCS: 97110 ==

== ENCOUNTER → 2022-04-14 09:53 | Outpatient (BNVA) | payer MEDICARE, SELFPAY | PROVIDERS: PCP Family Medicine; Visit Provider Podiatrist Foot & Ankle Surgery | DX: M54.16 Radiculopathy, lumbar region (principal); L85.3 Xerosis cutis | CPT/HCPCS: 99203 ==

== ENCOUNTER → 2022-05-03 08:54 | Outpatient (BNVA) | payer MEDICARE, SELFPAY | PROVIDERS: PCP Family Medicine; Visit Provider Internal Medicine | DX: M25.50 Pain in unspecified joint (principal); M17.12 Unilateral primary osteoarthritis, left knee; M19.90 Unspecified osteoarthritis, unspecified site; G62.9 Polyneuropathy, unspecified | CPT/HCPCS: 36415; 72202; 73120; 80053; 83735; 85025; 85651; 86140; 86160; 86162; 86200; 86235; 86255; 86376; 86431; 86704; 86803; 87340; 99204 ==

== ENCOUNTER → 2022-05-25 10:01 | Outpatient (BNVA) | payer MEDICARE, SELFPAY | PROVIDERS: PCP Family Medicine; Visit Provider Internal Medicine | DX: M45.6 Ankylosing spondylitis lumbar region (principal); N28.9 Disorder of kidney and ureter, unspecified; G62.9 Polyneuropathy, unspecified; M19.90 Unspecified osteoarthritis, unspecified site | CPT/HCPCS: 72020; 72072; 72100; 99213 ==

== ENCOUNTER → 2022-11-15 13:33 | Outpatient (BNVA) | payer MEDICARE, SELFPAY | PROVIDERS: PCP Family Medicine; Visit Provider Internal Medicine | DX: M19.90 Unspecified osteoarthritis, unspecified site (principal); G62.9 Polyneuropathy, unspecified; R79.82 Elevated C-reactive protein (CRP); Z79.899 Other long term (current) drug therapy; M47.899 Other spondylosis, site unspecified | CPT/HCPCS: 99214 ==

== ENCOUNTER 2023-01-03 09:19 | Outpatient (CLI) | payer MEDICARE, SELFPAY ==
[2023-01-03 10:10] LABS: Basophils % 0.8 %; Eosinophils # 0.3 10^3/uL (0.0-0.8); Eosinophils % 5.7 %; Hematocrit 46.9 % (37-53); Lymphocytes # 1.2 10^3/uL (0.8-4.8); Lymphocytes % 25.6 %; Mean Corpuscular HGB Conc 32.4 g/dL (30-55); Mean Corpuscular Hemoglobin 30.8 pg (27-33); Mean Corpuscular Volume 94.9 fl (82-101); Mean Platelet Volume 9.5 fL (7.4-10.4); Monocytes # 0.6 10^3/uL (0.2-0.9); Monocytes % 11.5 %; Neutrophils # 2.68 10^3/uL (1.8-7.7); Neutrophils % 56.2 %; Nucleated Red Blood Cells % 0 %; Platelet Count 227 10^3/cmm (157-399); Red Blood Count 4.94 10^6/uL (3.85-5.65); Red Cell Distribution Width 14.6 % (12.1-15.1); White Blood Count 4.77 10^3/uL (3.29-11.43)
[2023-01-03 10:17] LABS: Erythrocyte Sedimentation Rate 10 mm/hr (0-10)
[2023-01-03 10:23] LABS: Alanine Aminotransferase 15 U/L (0-41); Albumin Level 4.1 g/dL (3.5-5.2); Alkaline Phosphatase 75 U/L (40-130); Anion Gap 11.6 (5-19); Aspartate Amino Transferase 22 U/L (0-40); Blood Urea Nitrogen 23 mg/dL (8-23); Carbon Dioxide 27 mmol/L (22-29); Chloride 107 mmol/L (98-107); Globulin 2.6 g/dL (1.3-4.6); Glomerular Filtration Rate 83.4 mL/min (90-130); Glucose 103 mg/dL (65-115); Osmolality Calculated 296 mOsm/kg (285-295); Potassium 4.6 mmol/L (3.5-5.1); Sodium 141 mmol/L (136-145); Total Bilirubin 0.4 mg/dL (0.15-1.2); Total Protein 6.7 g/dL (6.6-8.7)
[2023-01-05 14:45] LABS: Lyme AB IGG, Blot NEGATIVE (NEGATIVE)
[2023-01-06 01:20] LABS: E. Chaffeensis AB IGG <1:64; E. Chaffeensis AB IGM <1:20
[2023-01-06 16:18] LABS: RMSF IGG NOT DETECTED; RMSF IGM NOT DETECTED
== END 2023-01-03 09:20 | disposition home or self-care (01) ==
PROVIDERS: PCP Family Medicine; Visit Provider Internal Medicine
DX: M19.90 Unspecified osteoarthritis, unspecified site (principal)
CPT/HCPCS: 36415; 80053; 85025; 85651; 86140; 86618; 86666; 86757

== ENCOUNTER → 2023-01-06 13:59 | Outpatient (BNVA) | payer MEDICARE, SELFPAY | PROVIDERS: PCP Family Medicine; Visit Provider Internal Medicine | DX: M19.90 Unspecified osteoarthritis, unspecified site (principal); G62.9 Polyneuropathy, unspecified; W57.XXXA Bitten or stung by nonvenomous insect and other nonvenomous arthropods, initial encounter | CPT/HCPCS: 99214 ==

== ENCOUNTER → 2023-04-21 11:40 | Outpatient (BNVA) | payer MEDICARE, SELFPAY | PROVIDERS: PCP Family Medicine; Visit Provider Internal Medicine | DX: G62.9 Polyneuropathy, unspecified (principal); M19.90 Unspecified osteoarthritis, unspecified site | CPT/HCPCS: 36415; 80053; 85025; 85651; 86140; 99214 ==